=== PATIENT | female | born 1950 | race Caucasian/White ===

== ENCOUNTER 2024-01-07 18:00 | Emergency (ER) | payer MEDICARE, OTHER | END 2024-01-07 18:57 | disposition home or self-care (01) | LOC: KA.ED 18:00 | DX: S92.352A Displaced fracture of fifth metatarsal bone, left foot, initial encounter for closed fracture (principal); S93.492A Sprain of other ligament of left ankle, initial encounter; E78.00 Pure hypercholesterolemia, unspecified; Z91.048 Other nonmedicinal substance allergy status; Z88.8 Allergy status to other drugs, medicaments and biological substances; Z87.891 Personal history of nicotine dependence; W19.XXXA Unspecified fall, initial encounter | CPT/HCPCS: 73610-LT; 73630-LT; 99283 ==